=== PATIENT | female | born 1955 | race Caucasian/White ===

== ENCOUNTER 2020-07-23 16:04 | Emergency (ER) | payer MEDICARE, SELFPAY ==
[2020-07-23 16:12] VITALS: BP 155/61; PULSE 76; RESP 20; TEMP 36.4; O2SAT 100
[2020-07-23 16:14] VITALS: BP 155/61; PULSE 76; RESP 20; TEMP 36.4; O2SAT 100
--- NOTE | 2020-07-23 16:17 | ED.SKABFB ---
HPI - Skin/Abscess/Foreign Bdy General Chief complaint: Skin/Abscess/Foreign Body Stated complaint: R SIDE PAIN/ITCHING/RASH Time Seen by Provider: 07/23/20 16:10 Source: patient and RN notes reviewed Mode of arrival: ambulatory Limitations: no limitations History of Present Illness HPI narrative: 64-year-old female presents with concern for burning pain, itchy rash that starts near her right scapula goes under her right arm to below her right breast. Reports symptoms started with pain, a small rash developed today. Reports a history of herpes simplex infections denies any history of shingles. She denies fever, malaise, body aches, chills, sweats. Denies intervention. She denies injury, trauma, chest wall pain with deep breathing. MD complaint: rash Related Data Home Medications Medication Instructions Recorded Confirmed Reloxifen 07/23/20 07/23/20 Allergies Allergy/AdvReac Type Severity Reaction Status Date / Time No Known Allergies Allergy Verified 07/23/20 16:13 Review of Systems Review of Systems: Narrative: CONSTITUTIONAL: Denies malaise, chills, sweats, or fever. CARDIOVASCULAR: Denies chest pain, palpitations, or edema. RESPIRATORY: Denies cough or dyspnea. SKIN: Denies burning, itching starting at the right scapula going under the right arm and under the right breast. Reports small rash MUSCULOSKELETAL: Denies myalgia. NEUROLOGIC: Denies headache. All systems reviewed & are unremarkable except as noted in HPI and below PMFSH Comments At time of signature, agree with nursing past medical, surgical, social and family history. There is no relevant family history pertinent to the presenting complaint Exam Narrative: Exam Narrative: GENERAL: Well-appearing, well-nourished, and in no acute distress. HEAD: Normocephalic, atraumatic. EYES: PERRLA, conjunctivae clear, and EOMI. ENT: Mucous membranes moist. Oropharynx without edema, erythema or lesions. NECK: Supple. No lymphadenopathy CHEST: Clear to auscultation. No respiratory distress. HEART: Regular rate and rhythm. SKIN: Warm, dry. Small zosteriform rash noted lateral of the right scapula NEURO: Alert and oriented x3. PSYCH: Normal mood and affect Course Course Emergency Course: Patient is aware of diagnosis, understands and agrees to treatment plan. Anticipatory guidance given. Patient agrees to follow-up as directed and is aware of reasons to seek care at the emergency department. Portions of this record may have been created with voice recognition software Vital Signs Vital signs: Vital Signs Temperature 97.6 F 07/23/20 16:12 Pulse Rate 76 07/23/20 16:12 Respiratory Rate 20 07/23/20 16:12 Blood Pressure 155/61 H 07/23/20 16:12 Pulse Oximetry 100 07/23/20 16:12 Temperature 97.6 F 07/23/20 16:14 Pulse Rate 76 07/23/20 16:14 Respiratory Rate 20 07/23/20 16:14 Blood Pressure 155/61 H 07/23/20 16:14 Pulse Oximetry 100 07/23/20 16:14 Reviewed. MDM - Skin/Abscess/Foreign Bdy MDM Narrative Medical decision making narrative: Does not appear at this time to be erythema multiforme, bullous, SJS, TEN; no evidence at this time to suggest RMSF, endocarditis or Lyme disease; patient looks well, nontoxic and is tolerating oral intake; no neurologic signs or symptoms; no headache, photophobia or neck pain; afebrile; appropriate for initial outpatient treatment; discussed the importance of follow-up, patient agrees; question, viral exanthema, contact dermatitis, allergic dermatitis, eczema, urticaria, shingles. No soft palate or uvula edema, no tongue, lip edema or other mucosal involvement, no respiratory compromise, no stridor, no wheezing, no wheezing, no history of syncope, no hypotension, no nausea, vomiting, or diarrhea. Instructed patient to go to nearest ER immediately for any worsening symptoms including but not limited to: fever, spreading rash, pain, sore throat, headache, dizziness, chest pain, trouble breathing, or
== END 2020-07-23 16:25 | disposition home or self-care (01) ==
PROVIDERS: Emergency Provider Nurse Practitioner
DX: B02.9 Zoster without complications (principal)
CPT/HCPCS: 99213; G0463